=== PATIENT | male | born 1945 | race Caucasian/White ===

== ENCOUNTER → 2016-09-10 | Outpatient (CLI) | payer MEDICARE, OTHER ==
[~2016-09-10] MED LIST: COREG 6.256.25 MG/TA PO; GLUCOPHAGE500 MG/TAB PO; LASIX 40MG TABL40 MG PO; LEVOXYL0.137 MG PO; PAXIL 20MG20 MG PO; ULTRAM 50MG TAB50 MG PO; XANAX .25M0.25 MG/TA PO
== END ==
LOC: COL.RAD 11:55
DX: J90 Pleural effusion, not elsewhere classified (principal)
CPT/HCPCS: Q9967

== ENCOUNTER 2017-01-19 10:39 | Inpatient (IN) | payer MEDICARE, OTHER ==
[2017-01-19] VITALS (208 sets, daily range): BP systolic 85–99; BP diastolic 64–68; PULSE 105–110; TEMP 97.1–97.5; O2SAT 40–100
[~2017-01-19] VITALS: Ht 172.7 cm; Wt 80.8 kg
[2017-01-19] MEDS ORDERED: GLUCOPHAGE500 MG/TAB PO (12:55)
[2017-01-19] MEDS ORDERED: COREG 6.256.25 MG/TA PO (12:56)
[2017-01-19] MEDS ORDERED: LEVOXYL0.137 MG PO (12:56)
[2017-01-19] MEDS ORDERED: ULTRAM 50MG TAB50 MG PO (12:57)
[2017-01-19] MEDS ORDERED: PAXIL 20MG20 MG PO ×2 (12:58)
[2017-01-19] MEDS ORDERED: LASIX 40MG TABL40 MG PO ×2 (12:59)
[2017-01-19] MEDS ORDERED: XANAX .25M0.25 MG/TA PO (13:00)
[2017-01-19 14:54] LABS: INR 1.1 (0.8-3.0); PROTHROMBIN TIME 12.6 SECONDS (9.7-12.8)
[2017-01-19 14:57] LABS: PARTIAL THROMBOPLASTIN TIME 26.9 SECONDS (26.0-37.0)
[2017-01-19 15:12] LABS: TROPONIN-I 5.23 ng/mL (0.000-0.034)
[2017-01-19 22:42] LABS: CALCIUM 9.2 mg/dL (8.4-10.2); CREATININE, serum 1.62 mg/dL (0.66-1.25); POTASSIUM 5.4 mmol/L (3.4-5.0)
[2017-01-20] VITALS (453 sets, daily range): BP systolic 87–91; BP diastolic 58–69; PULSE 106–111; TEMP 97.4–97.9; O2SAT 30–100
[2017-01-20 05:33] LABS: ADD PATHOLOGY DIFF REVIEW NO
[2017-01-20 05:38] LABS: CALCIUM 9.2 mg/dL (8.4-10.2); CREATININE, serum 1.56 mg/dL (0.66-1.25); MAGNESIUM 2.1 mg/dL (1.6-2.3); POTASSIUM 5.6 mmol/L (3.4-5.0)
[2017-01-20 05:46] LABS: MEAN CELL VOLUME 96 fl (80.0-100.0); MEAN CORPUSCULAR HGB CONC 34 g/dl (33.0-37.0); MEAN PLATELET VOLUME 11.3 fl (7.4-10.4); PLATELET COUNT 301 K/mm3 (130-400); RED BLOOD COUNT 2.48 M/mm3 (4.20-5.60); RETIC % 3.6 % (0.5-3.52); WHITE BLOOD COUNT 14.2 K/mm3 (4.8-10.8)
[2017-01-20 05:47] LABS: HEMATOCRIT 23.9 % (42.0-52.0); HEMOGLOBIN 8.2 g/dl (13.5-18.0); MEAN CORPUSCULAR HEMOGLOBIN 33 pg (27.0-31.0)
[2017-01-20 06:09] LABS: ANISOCYTOSIS 1+; BAND 3 % (0-10); EOSINOPHIL 1 % (0-4); NEUTROPHILS 88 % (42.0-75.2); POIKILOCYTOSIS 1+; POLYCHROMASIA 1+; STOMATOCYTE 1+; TOTAL CELLS COUNTED 100
[2017-01-20 06:10] LABS: HYPOCHROMIA 1+; MICROCYTOSIS 1+
== END 2017-01-20 12:28 | disposition short-term general hospital (02) | DRG 270 ==
LOC: IMCU 10:39 → ICU 11:49
PROVIDERS: Internal Medicine
PROC: B2111ZZ Fluoroscopy of Multiple Coronary Arteries using Low Osmolar Contrast (ICD-10-PCS; principal; 2017-01-20)
PROC: 5A02210 Assistance with Cardiac Output using Balloon Pump, Continuous (ICD-10-PCS; 2017-01-20)
DX: I21.4 Non-ST elevation (NSTEMI) myocardial infarction (principal); R57.0 Cardiogenic shock; E87.1 Hypo-osmolality and hyponatremia; I13.0 Hypertensive heart and chronic kidney disease with heart failure and stage 1 through stage 4 chronic kidney disease, or unspecified chronic kidney disease; I50.22 Chronic systolic (congestive) heart failure; I42.0 Dilated cardiomyopathy; I25.10 Atherosclerotic heart disease of native coronary artery without angina pectoris; E87.5 Hyperkalemia; E11.22 Type 2 diabetes mellitus with diabetic chronic kidney disease; N18.9 Chronic kidney disease, unspecified; D64.9 Anemia, unspecified
CPT/HCPCS: 99223-AI; 99239; A9270-GY; C1894; J1644; J1815; J2250; J3010; J7030; Q9967